=== PATIENT | female | born 1950 | race African-American/Black ===

== ENCOUNTER 2016-11-11 09:24 | Inpatient (IN) | payer OTHER, MEDICARE ==
[~2016-11-11] VITALS: Ht 163.8 cm; Wt 116.3 kg
[2016-11-12] MEDS ORDERED: MULT1TAB PO (09:53)
[2016-11-12] MEDS ORDERED: MAGN400T24 PO (09:53)
[2016-11-12] MEDS ORDERED: AMLO5TAB2 PO (09:53)
[2016-11-12] MEDS ORDERED: METF1000 PO (09:53)
[2016-11-12] MEDS ORDERED: VITACAP7 PO (09:53)
[2016-11-12] MEDS ORDERED: ATEN25TA PO (09:53)
[2016-11-12] MEDS ORDERED: OMEP20TA PO (09:53)
[2016-11-12] MEDS ORDERED: LOSA25TA PO (09:53)
[2016-11-12] MEDS ORDERED: VITATAB56 PO (09:53)
[2016-11-12] MEDS ORDERED: FLUT1SPR5 EACH NARE (09:53)
[2016-11-12] MEDS ORDERED: DICL75TA PO (09:53)
[2016-11-12] MEDS ORDERED: PRAV10TA PO (09:53)
[2016-11-24] MEDS ORDERED: BUPIVACAINE LIPOSOME PF 1.3% 20 ML VIAL ONE (09:05)
[2016-11-24 09:08] VITALS: BP 148/88; PULSE 78; RESP 16; TEMP 99.6; O2SAT 96
[2016-11-24] MEDS ORDERED: ROPIVACAINE PERI-ARTICULAR INJECTION. P-ARTICULR SCH ×5 (09:15)
[2016-11-24] MEDS ORDERED: ceFAZolin 2 GM PREMIX 50 ML IV SCH (09:15)
[2016-11-24] MEDS ORDERED: INSULIN HUMAN REGULAR 1,000 UNITS/10 ML VIAL SQ PRN (09:15)
[2016-11-24] MEDS ORDERED: POVIDONE IODINE 7.5% SCRUB 118 ML BOTTLE TOPICAL SCH (09:15)
[2016-11-24] MEDS ORDERED: SODIUM CHLORIDE 0.9% IV SCH ×2 (09:15→15:00)
[2016-11-24] MEDS ORDERED: CHLORHEXIDINE GLUCONATE 2 % 1 PACK (2 CLOTHS) TOPICAL PRN (09:15)
[2016-11-24] MEDS ORDERED: POVIDONE IODINE 5% (ANTISEPSIS KIT) 4 APPLICATIONS EACH NARE PRN (09:15)
[2016-11-24] MEDS ORDERED: SODIUM CHLORID 0.9% 500 ML IV PRN (09:15)
[2016-11-24] MEDS ORDERED: METOPROLOL TARTRATE 25 MG TAB PO PRN (09:15)
[2016-11-24] MEDS ORDERED: VANCOMYCIN 1000 MG/NS 250 ML (for <70 kg) IV SCH ×2 (09:15)
[2016-11-24] MEDS ORDERED: DEXAMETHASONE SOD PHOS 20 MG/5 ML VIAL IV ONE (09:15)
[2016-11-24] MEDS ORDERED: LACTATED RINGER'S 1000 ML IV PRN (09:15)
[2016-11-24] MEDS ORDERED: TRANEXAMIC ACID IV SCH ×2 (09:15→15:00)
[2016-11-24] MEDS ORDERED: FAMOTIDINE 20 MG/2 ML VIAL ONE (10:49)
[2016-11-24] MEDS ORDERED: MIDAZOLAM HCL 2 MG/2 ML VIAL ONE ×2 (10:49→14:27)
[2016-11-24] MEDS ORDERED: GENTAMICIN SULFATE 80 MG/2 ML VIAL ONE (11:04)
[2016-11-24] MEDS ORDERED: ACETAMINOPHEN 1000 MG/100 ML VIAL IV ONE (11:12)
[2016-11-24] MEDS ORDERED: LACTATED RINGER'S 1000 ML INJ 1,000 ML IV ONE (12:00)
[2016-11-24] MEDS ORDERED: ONDANSETRON HCL 4 MG/2 ML VIAL IV PUSH ONE (12:00)
[2016-11-24] MEDS ORDERED: NEOSTIGMINE 3 MG/3 ML SYR IV ONE (12:00)
[2016-11-24] MEDS ORDERED: PROPOFOL 200 MG/20 ML AMP IV ONE (12:00)
--- NOTE | 2016-11-24 13:56 | PD.OP ---
cc: Mookie Funk MD Operative Report Date of Surgery: Nov 24, 2016 Preoperative Diagnosis: Right knee severe osteoarthritis Postoperative Diagnosis: Same Procedure: Right total knee arthroplasty Anesthesia: Adductor canal block and general Surgeon: Mookie Funk Audit Manager(s): ADOLFO Qureshi The surgical procedure was assisted by my Advanced Registered Nurse Practitioner. My GAMEROOM TECHNICIAN presence was necessary throughout this case for the manipulation and positioning of the surgical extremity. My GAMEROOM TECHNICIAN was assisting me throughout the duration of this procedure. The skill set of an Advance Registered Nurse Practitioner was medically necessary to complete this procedure. During the surgical case, the surgical aides teacher was working at the back table and the Advance Registered Nurse Practitioner was directly assisting me. Operation and Findings: IMPLANTS: DePuy Attune: Patella: size 35. Femur, posterior stabilized size 5. Tibia, rotating platform size 5. Tibial insert, rotating platform, posterior stabilized size 12 mm thickness. ESTIMATED BLOOD LOSS: 150 cc TOURNIQUET TIME: 47 minutes at 300 mmHg pressure. JUSTIFICATION FOR PROCEDURE: The patient has end-stage osteoarthritis to the knee. There is an attached conservative measures pathway form in the chart that describes the nonoperative measures that were undertaken prior to consideration of surgical management. The patient understood the risks and benefits of surgical management. See my office notes for further details PROCEDURE: The patient was brought back to the operative theatre. Adequate anesthesia was obtained. The patient received intravenous vancomycin and Ancef. The lower extremity was prepped and draped in the usual sterile fashion.The leg was exsanguinated, the tourniquet was raised. A standard anterior incision was performed followed by medial parapatellar arthrotomy was performed. End-stage arthritis was identified. Osteotomy of the patella was performed. We drilled holes for the patella. We trialed the patella component. We placed an intramedullary guide into the distal femur. We ultimately resected 11 mm off of the distal femur in 5 degrees of valgus. The remnants of the ACL and PCL were resected. Osteotomy of the proximal tibia was performed, resecting 5 mm off of the medial side. This was done with 3 degrees of posterior slope using an extramedullary guide. The distal end of the guide was placed in the mid aspect of the ankle. The femur was sized, and four chamfer cuts were completed in 3 of external rotation. We then cut the central box in the distal femur to replace the PCL. We resected the remnants of the menisci and removed osteophytes off of the femur and tibia. We then trialed the knee. We punched the tibia for the keel, and then used standard technique to cement in components. Excess cement was removed. We trialed the knee again and the final polyethylene thickness was chosen to provide extension to 0 degrees, and flexion of 140 degrees to gravity. The ligaments were appropriately balanced. Lateral release was not necessary to obtain excellent patellofemoral tracking. The tourniquet was released and adequate hemostasis was obtained. An intra- articular injection of a ropivacaine cocktail was injected. The posterior knee was inspected for excess cement, which was removed. The final polyethylene was put into position after thorough irrigation. We then closed deep fascia with a #2 Stratafix followed by skin with 2-0 Vicryl followed by sumanth. Postop plan is to weight-bear as tolerated. DVT prophylaxis will be performed with [place], VARSHA ugalde, early mobilization, and Lovenox followed by aspirin. Mookie Funk MD Nov 24, 2016 13:56
[2016-11-24] MEDS ORDERED: NORC5TAB PO (13:57)
[2016-11-24] MEDS ORDERED: ENOX40P SQ (13:57)
[2016-11-24] MEDS ORDERED: ASPI325T PO (13:57)
[2016-11-24] MEDS ORDERED: NALOXONE HCL 0.4 MG/ML AMP IV PRN (14:00)
[2016-11-24] MEDS ORDERED: ALUMINUM/MAGNESIUM/SIMETH 30 ML CUP PO PRN (14:00)
[2016-11-24] MEDS ORDERED: SODIUM CHLORIDE 0.9% FLUSH 5 ML FLUSH IVF PRN (14:00)
[2016-11-24] MEDS ORDERED: ZOLPIDEM TARTRATE 5 MG TAB PO PRN (14:00)
[2016-11-24] MEDS ORDERED: ACETAMINOPHEN/HYDROcodone 325 MG/5 MG TAB PO PRN (14:00)
[2016-11-24] MEDS ORDERED: diphenhydrAMINE HCL 50 MG/ML VIAL IV PRN (14:00)
[2016-11-24] MEDS ORDERED: Post-op Orders (for Pharmacy) MISC XX ONE (14:00)
[2016-11-24] MEDS ORDERED: MAGNESIUM HYDROXIDE SUSP 30 ML CUP PO PRN (14:00)
[2016-11-24] MEDS ORDERED: MORPHINE SULFATE 4 MG/ML INJ IV PUSH PRN (14:00)
[2016-11-24] MEDS ORDERED: BISACODYL 10 MG SUPP RECTAL PRN (14:00)
[2016-11-24] MEDS ORDERED: DO NOT ADM ANY ANTICOAGULANT DRUGS PRN (14:15)
[2016-11-24] MEDS: SODIUM CHLOR 0.9% 1000 ML INJ 1,000 ML IV SCH (14:26)
[2016-11-24] MEDS ORDERED: fentaNYL CITRATE 250 MCG/5 ML AMP ONE (14:28)
--- NOTE | 2016-11-24 14:33 | HHI.DCPOC ---
Discharge Care Plan Diagnosis: (1) Primary localized osteoarthrosis, lower leg (2) Status post total knee replacement, right Your Health Problems Are: Difficulty with ADL Goals to Promote Your Health * To prevent worsening of your condition and complications * To maintain your health at the optimal level Directions to Meet Your Goals Take your medications as prescribed Follow your dietary instruction Follow activity as directed Keep your appointments as scheduled Take your immunizations and boosters as scheduled If your symptoms worsen call your PCP, if no PCP go to Urgent Care Center or Emergency Room Smoking is Dangerous to Your Health. Avoid second hand smoke Call the 24-hour hour crisis hotline for domestic abuse at Cesario Swartz Nov 24, 2016 14:33
--- NOTE | 2016-11-24 14:34 | HHI.FF ---
Face to Face Verification Diagnosis: (1) Primary localized osteoarthrosis, lower leg (2) Status post total knee replacement, right Physical Therapy Gait training, Transfer training, bed to chair Knee: Total knee Right LE Weight Bearing: WB as tolerated Right LE Range of Motion: Active ROM Nursing Nursing: Mirta teaching, Dressing changes Dressing Changes: Daily dressing change I have seen patient Priyanka Marc on 11/24/16. My clinical findings support the need for the requested home health care services because: Limited ability to care for self High risk of falls I certify that my clinical findings support that this patient is homebound because: Post-op weakness Unsteady gait/balance Cesario Swartz Nov 24, 2016 14:34
[2016-11-24] MEDS ORDERED: CPMMACHINE (14:35)
[2016-11-24] MEDS ORDERED: WALKER WHEELS/F1 MIS (14:35)
[2016-11-24] MEDS ORDERED: COMMODE 3-IN-11 MIS (14:35)
[2016-11-24] MEDS ORDERED: *ONDANSETRON 4 MG VIAL PERIprocedural Use ONLY ONE (14:42)
[2016-11-24] MEDS ORDERED: *morphine SULFATE 8 MG/ML PERIprocedure ONLY ONE (14:51)
--- NOTE | 2016-11-24 14:51 | RADRPT ---
EXAM DATE/TIME: 11/24/2016 14:24 [facility] COMPARISON: No previous studies available for comparison. INDICATIONS : Status post op total right knee arthroplasty. MEDICAL HISTORY : None. SURGICAL HISTORY : None. ENCOUNTER: Subsequent ACUITY: 1 day PAIN SCORE: Non-responsive. LOCATION: Right Knee FINDINGS: Postsurgical features of the right hip arthroplasty with arthroplastic components in anatomic alignme nt. Osseous structures are intact without evidence for acute bony fracture. Surgical staple lines and soft tissue postsurgical emphysema is noted. CONCLUSION: 1. Expected postoperative changes of right knee arthroplasty in anatomic alignment without significan t acute fracture. Odell Serna MD on November 24, 2016 at 14:48 Board Certified Radiologist. This report was verified electronically.
[2016-11-24] MEDS ORDERED: *RESP: ALBUTEROL 2.5 MG/3 ML NEB (PRN) PERIprocedural Use ONLY NEB ONE (15:14)
[2016-11-24 16:00] VITALS: BP 138/90; PULSE 80; RESP 18; TEMP 98.8; O2SAT 94
[2016-11-24] MEDS ORDERED: GLUCAGON 1 MG/ML VIAL OTHER PRN (16:45)
[2016-11-24] MEDS ORDERED: DEXTROSE 50% IN WATER 50 ML VIAL(D50) IV PRN (16:45)
--- NOTE | 2016-11-24 17:59 | PD.CONS ---
HPI Service [facility] Hospitalists Consult Requested By Dr. Funk Reason for Consult Medical management Primary Care Physician Katia Myles Diagnoses: (1) Status post total knee replacement, right (2) Primary localized osteoarthrosis, lower leg History of Present Illness Written by Syeda Martinez, acting as scribe for Dr. Duckworth on 11/24/16 at 17:58. Ms. Marc is a 66-year-old female patient with a known history of type 2 diabetes mellitus, hypertension, asthma, diverticulitis, dyslipidemia, arthritis , sleep apnea, GERD and right lower extremity osteoarthritis who underwent a right total knee replacement today by Dr. Funk. Hospitalist team has been consulted for medical management. Patient is seen and examined in hospital room , a relatively poor historian due to significant pain related to surgery. Family at bedside. Questions answered via patient, family and review of medical records. Patient does state that her diabetes is relatively controlled, currently on Metformin, and remembers her last hemoglobin A1c around 5. States she is compliant with her home medications. Denies any recent illness, fever, chills, cough, headache, shortness of breath, abdominal pain, nausea, vomiting, diarrhea or dysuria. Review of Systems Musculoskeletal: COMPLAINS OF: Joint pain (right knee) Except as stated in HPI: all other systems reviewed are Neg Past Family Social History Allergies: Coded Allergies: Codeine (Verified Allergy, Intermediate, nausea vomiting, 11/24/16) Tramadol (Unverified Allergy, Intermediate, nausea vomiting, 11/24/16) Past Medical History Anemia Arthritis Asthma Type 2 diabetes mellitus Hypertension Sleep apnea Dyslipidemia GERD Past Surgical History Total hysterectomy Hernia repair x 3 Abdominal mesh repair Left food titanium ball placement. Reported Medications Active Aspirin 325 Mg Tab 325 Mg PO DAILY Start Aspirin after Lovenox is completed. Lovenox Inj (Enoxaparin Sodium) 40 Mg/0.4 Ml Syr 40 Mg SQ DAILY Start Aspirin after Lovenox is completed. Green[place] (Hydrocodone-Acetaminophen) 5-325 mg Tab 1-2 Tab PO Q4H PRN Reported Vitamin D-400 (Cholecalciferol) 400 Unit Tab 400 Units PO DAILY B Complex (B-Complex Vitamins) 1 Cap 1 Cap PO DAILY Magnesium (Magnesium Oxide) 400 Mg Tablet 400 Mg PO DAILY Pravastatin 10 Mg Tab 10 Mg PO DAILY Losartan (Losartan Potassium) 25 Mg Tab 25 Mg PO DAILY Centrum Silver Adult 50+ (Multiple Vitamins W/ Minerals) 1 Tab Tab 1 Tab PO DAILY Omeprazole 20 Mg Tab 20 Mg PO DAILY Metformin (Metformin HCl) 1,000 Mg Tab 1,000 Mg PO BIDPC With meals Diclofenac Sodium DR (Diclofenac Sodium) 75 Mg Tabdr 75 Mg PO BID Atenolol 25 Mg Tab 25 Mg PO DAILY Amlodipine (Amlodipine Besylate) 5 Mg Tab 5 Mg PO DAILY Active Ordered Medications Current Medications Medications (Trade) Dose Ordered Sig/Sharlene Route Start Time Stop Time Status Last Admin (Norvasc) 5 mg DAILY PO 11/25/16 09:00 (Tenormin) 25 mg DAILY PO 11/25/16 09:00 (Cozaar) 25 mg DAILY PO 11/25/16 09:00 (Mag-Ox) 400 mg DAILY PO 11/25/16 09:00 (Glucophage) 1,000 mg BIDPC PO 11/25/16 09:00 (Pravachol) 10 mg DAILY PO 11/25/16 09:00 Pantoprazole Sodium 20 mg 20 mg DAILY PO 11/25/16 09:00 (NS 1000 ml Inj) 1,000 ml @ 100 mls/hr Q10H IV 11/24/16 13:52 11/24/16 14:26 (NS Flush) 2 ml UNSCH PRN IVF 11/24/16 14:00 IV Flush 2 ml 2 ml BID IVF 11/24/16 21:00 (Ancef Inj/NS Inj) 100 ml @ 200 mls/hr Q6H IV 11/24/16 15:00 11/25/16 03:29 11/24/16 15:20 (Decadron Inj) 10 mg ONCE ONCE IV 11/25/16 07:45 11/25/16 07:46 (Lovenox Inj) 40 mg Q24H SQ 11/25/16 13:00 12/04/16 13:01 (Greenleaf 5-325 Mg) 1 tab Q4H PRN PO 11/24/16 14:00 Acetaminophen/ Hydrocodone Bitart 2 tab 2 tab Q4H PRN PO 11/24/16 14:00 (Cyklokapron Inj/ NS Inj) 110.88 ml @ 200 mls/ hr UNSCH IV 11/24/16 15:00 11/24/16 23:00 11/24/16 14:47 (Theragran M Tab) 1 tab BID PO 11/25/16 21:00 01/24/17 20:59 (Zofran Inj) 4 mg Q6H PRN IVP 11/24/16 14:00 (Colace) 100 mg BID PO 11/25/16 21:00 (Mag-Al Plus Susp Liq) 30 ml Q6H PRN PO 11/24/16 14:00 (Ambien) 5 mg HS PRN PO 11/24/16 14:00 (Dulcolax Supp) 10 mg DAILY PRN RECTAL 11/24/16 14:00 (Milk Of Magnesia Liq) 30 ml DAILY PRN PO 11/24/16 14:00 (Narcan Inj) 0.4 mg UNSCH PRN IV 11/24/16 14:00 (Benadryl Inj) 25 mg Q6H PRN IV 11/24/16 14:00 (Morphine Inj) 2 mg Q3H PRN IV PUSH 11/24/16 14:00 Miscellaneous Information ALL NURSING DEPARTME... UNSCH PRN .XX 11/24/16 14:15 11/25/16 14:14 (D50w (Vial) Inj) 50 ml UNSCH PRN IV 11/24/16 16:45 (Glucagon Inj) 1 mg UNSCH PRN OTHER 11/24/16 16:45 Family History Maternal medical history significant for Alzheimer's disease. Paternal medical history significant for CVA. Social History Patient denies any current tobacco, alcohol or illicit drug use. Physical Exam Vital Signs Vital Signs Date Time Temp Pulse Resp B/P Pulse Ox O2 Delivery O2 Flow Rate FiO2 11/24/16 16:00 99.0 79 21 157/76 96 Nasal Cannula 3 11/24/16 15:45 76 21 150/79 93 Nasal Cannula 3 11/24/16 15:30 71 22 156/80 94 Nasal Cannula 3 11/24/16 15:15 69 14 150/75 90 Nasal Cannula 4 11/24/16 15:00 62 20 145/68 98 Nasal Cannula 4 11/24/16 14:45 68 20 155/80 91 Nasal Cannula 4 11/24/16 14:30 62 22 132/61 95 Nasal Cannula 4 11/24/16 14:17 98.7 71 20 160/80 91 Nasal Cannula 5 11/24/16 09:08 99.6 78 16 148/88 96 Physical Exam GENERAL: Well-developed patient obese female patient lying in bed with apparent right knee pain. SKIN: No rashes, ecchymoses or lesions. Warm and dry. Right lower extremity bandage c/d/i. HEENT: Atraumatic. Normocephalic. No temporal or scalp tenderness. Pupils equal round and reactive. Extraocular motions intact. No scleral icterus. No injection or drainage. Nose without bleeding. Airway patent. NECK: Trachea midline. No JVD. Supple. CARDIOVASCULAR: Regular rate and rhythm. No murmur appreciated. RESPIRATORY: Clear to auscultation. Breath sounds equal bilaterally. No wheezes , rales, or rhonchi. GASTROINTESTINAL: Abdomen soft, non-tender, nondistended. No hepato-splenomegaly , or palpable masses. No guarding. MUSCULOSKELETAL: Extremities without clubbing, cyanosis, or edema. No joint tenderness, effusion, or edema noted. NEUROLOGICAL: Awake and alert. Cranial nerves II through XII intact. Motor and sensory grossly within normal limits. Five out of 5 muscle strength in all muscle groups. Normal speech. Laboratory Laboratory Tests Test 11/24/16 08:53 Blood Type O POSITIVE Antibody Screen NEGATIVE Crossmatch Leukocyte-Reduced Red Blood Cells Blood Bank Comment Imaging Last Impressions Knee X-Ray 11/24/16 1352 Signed Impressions: Service Date/Time: Tuesday, November 24, 2016 14:24 - CONCLUSION: 1. Expected postoperative changes of right knee arthroplasty in anatomic alignment without significant acute fracture. Odell Serna MD Assessment and Plan Assessment and Plan Ms. Marc is a 66-year-old female patient with a known history of type 2 diabetes mellitus, hypertension, asthma, dyslipidemia, arthritis, sleep apnea, GERD and left lower extremity osteoarthritis who underwent a right total knee replacement today by Dr. Funk. Hospitalist team has been consulted for medical management. Status post total right knee arthroplasty Osteoarthritis of right knee - Post op day 0, 11/24/16 - Knee x-ray reviewed, normal postoperative findings. - Control pain, [place] 5/325 mg PO q4hr PRN per pain scale. Morphine 2 mg IV q3hr PRN pain > 5. - Monitor for constipation, Colace 100 mg PO BID scheduled, Milk of magnesium and bisacodyl suppository available PRN. - Control nausea, Zofran PRN. - Encourage use of incentive spirometry. - Vancomycin 1 g IV x 1 given in OR. Ancef 1 gram x 3 bags. - Decadron 10 mg IV x 1. - Encourage PO intake as tolerated. Continue IVF until tolerating PO intake. - Dressing changes and immobilizer managed by orthopedic surgery. Hypertension, chronic: suspect partially pain related. Continue home amlodipine 5 mg PO dialy, atenolol 25 m PO daily, Losartan 25 mg PO daily. Type 2 diabetes mellitus, chronic: Tight glucose control. ACCU checks ACHS. Sliding scale insulin, cover as needed. Continue Metformin 1000 mg PO BID. Dyslipidemia, chronic: Continue home pravastatin 10 mg PO daily. GI Prophylaxis: Protonix 20 mg Po daily. DVT prophylaxis: SCDs/Lovenox 40 mg sq Q24hr. Thank you for this consult. Will follow with you. This note was transcribed by ADOLFO Bobo. I, Dr. Jignesh Duckworth personally performed the history, physical exam, and medical decision making; and confirmed the accuracy of the information in the transcribed note. Authenticated by Dr. Jignesh Duckworth on 11/24/16 at 18:44. Syeda Martinez Nov 24, 2016 17:59 Mamie Duckworth DO Nov 24, 2016 18:45
[2016-11-24 20:00] VITALS: BP 143/84; PULSE 88; RESP 16; TEMP 98.9; O2SAT 97
[2016-11-24] MEDS: ONDANSETRON HCL 4 MG/2 ML VIAL IVP PRN (20:03)
[2016-11-24] MEDS: ACETAMINOPHEN/HYDROcodone 325 MG/5 MG TAB PO PRN (20:03)
[2016-11-24] MEDS: SODIUM CHLORIDE 0.9% FLUSH 5 ML FLUSH IVF SCH (20:04)
[2016-11-24] MEDS: INSULIN ASPART SUPPLEMENTAL SCALE SQ SCH (21:00)
[2016-11-24 21:06] VITALS: O2SAT 97
[2016-11-24 23:10] VITALS: BP 138/72; PULSE 83; RESP 17; TEMP 98.9; O2SAT 96
[2016-11-25] MEDS: ACETAMINOPHEN/HYDROcodone 325 MG/5 MG TAB PO PRN ×4 (00:17→13:46)
[2016-11-25] MEDS: SODIUM CHLOR 0.9% 1000 ML INJ 1,000 ML IV SCH ×2 (00:19→09:52)
[2016-11-25 04:00] VITALS: BP 111/53; PULSE 75; RESP 16; TEMP 97.4; O2SAT 95
[2016-11-25] MEDS: INSULIN ASPART SUPPLEMENTAL SCALE SQ SCH ×2 (06:15→11:00)
[2016-11-25 06:23] LABS: HEMATOCRIT 30.1 % (35.0-46.0); MEAN CELL VOLUME 83.5 FL (80.0-100.0); MEAN CORPUSCULAR HEMOGLOBIN 26.7 PG (27.0-34.0); MEAN CORPUSCULAR HGB CONC 31.9 % (32.0-36.0); PLATELET COUNT 226 TH/MM3 (150-450); RED CELL DISTRIBUTION WIDTH 15.1 % (11.6-17.2); REVIEW FLAG FINAL; WHITE BLOOD COUNT 12.5 TH/MM3 (4.0-11.0)
[2016-11-25] MEDS ORDERED: DEXAMETHASONE SOD PHOS 20 MG/5 ML VIAL IV ONE (07:45)
[2016-11-25 08:00] VITALS: BP 132/63; PULSE 79; RESP 18; TEMP 99.1; O2SAT 93
[2016-11-25] MEDS ORDERED: PANTOPRAZOLE SOD 20 MG DELAYED RELEASE TAB PO SCH (09:00)
[2016-11-25] MEDS ORDERED: ATENOLOL 25 MG TAB PO SCH (09:00)
[2016-11-25] MEDS ORDERED: amLODIPine BESYLATE 5 MG TAB PO SCH (09:00)
[2016-11-25] MEDS ORDERED: metFORMIN HCL 500 MG TAB PO SCH (09:00)
[2016-11-25] MEDS ORDERED: MAGNESIUM OXIDE 400 MG TAB PO SCH (09:00)
[2016-11-25] MEDS ORDERED: LOSARTAN 25 MG TAB PO SCH (09:00)
[2016-11-25] MEDS ORDERED: PRAVASTATIN SOD 10 MG TAB PO SCH (09:00)
[2016-11-25] MEDS: SODIUM CHLORIDE 0.9% FLUSH 5 ML FLUSH IVF SCH (09:41)
[2016-11-25] MEDS: ONDANSETRON HCL 4 MG/2 ML VIAL IVP PRN (09:59)
[2016-11-25] MEDS ORDERED: FERR324T4 PO (11:17)
[2016-11-25 11:18] VITALS: BP 135/73; PULSE 75; RESP 18; TEMP 99.2; O2SAT 94
--- NOTE | 2016-11-25 12:29 | PD.ORT.PN ---
Subjective Post Op Day #: 1 Subjective Remarks The patient is resting in bed with family at bedside. Patient is having minimal pain. Patient requesting to go home today with home health. Objective Vitals Vital Signs Date Time Temp Pulse Resp B/P Pulse Ox O2 Delivery O2 Flow Rate FiO2 11/25/16 11:18 99.2 75 18 135/73 94 11/25/16 08:00 99.1 79 18 132/63 93 11/25/16 04:00 97.4 75 16 111/53 95 11/24/16 23:10 98.9 83 17 138/72 96 11/24/16 21:06 97 Nasal Cannula 2.00 11/24/16 20:00 98.9 88 16 143/84 97 11/24/16 16:00 98.8 80 18 138/90 94 11/24/16 16:00 99.0 79 21 157/76 96 Nasal Cannula 3 11/24/16 15:45 76 21 150/79 93 Nasal Cannula 3 11/24/16 15:30 71 22 156/80 94 Nasal Cannula 3 11/24/16 15:15 69 14 150/75 90 Nasal Cannula 4 11/24/16 15:00 62 20 145/68 98 Nasal Cannula 4 11/24/16 14:45 68 20 155/80 91 Nasal Cannula 4 11/24/16 14:30 62 22 132/61 95 Nasal Cannula 4 11/24/16 14:17 98.7 71 20 160/80 91 Nasal Cannula 5 I/O 11/24/16 11/24/16 11/24/16 11/25/16 11/25/16 11/25/16 07:00 15:00 23:00 07:00 15:00 23:00 Intake Total 1700 ml 1870 ml 720 ml Output Total 200 ml Balance 1500 ml 1870 ml 720 ml Intake Oral 610 ml 720 ml IV Total 1260 ml Other 1700 ml Output Estimated Blood Loss 200 ml # Voids 3 2 # Bowel Movements 0 Result Diagram: 11/25/16 0541 Imaging Last 24 hours Impressions Knee X-Ray 11/24/16 1352 Signed Impressions: Service Date/Time: Thursday, November 24, 2016 14:24 - CONCLUSION: 1. Expected postoperative changes of right knee arthroplasty in anatomic alignment without significant acute fracture. Odell Serna MD Procedures Right TKA Objective Remarks The patient's dressing was changed with no drainage. Incision is well approximated with surgical clips intact. No redness or s/s of infection. EHL/ TA/G intact. 2+ pedal pulse. Calf is soft and nontender. + SILT. Assessment & Plan Ortho Post Op Day #: 1 Problem List: Assessment and Plan POD #1: Right TKA 1. WBAT RLE 2. Lovenox for DVT prophylaxis 3. Ice to the right knee PRN 4. Stable for discharge home with home health per ortho today. Cesario Swartz Nov 25, 2016 12:29
[2016-11-25] MEDS ORDERED: ZOFR4TAB PO (12:30)
--- NOTE | 2016-11-25 12:35 | HHI.PR ---
Subjective Remarks Written by Syeda aMrtinez, acting as scribe for Dr. Duckworth on 11/25/16 at 1115. Follow up right knee arthroplasty. Patient seen and examined lying comfortably in bed. Pain is more controlled today. Tolerating PO intake. No BM as of yet. Denies any recent fever, chills, cough, shortness of breath, abdominal pain, nausea, vomiting, diarrhea. Objective Vitals Vital Signs Date Time Temp Pulse Resp B/P Pulse Ox O2 Delivery O2 Flow Rate FiO2 11/25/16 11:18 99.2 75 18 135/73 94 11/25/16 08:00 99.1 79 18 132/63 93 11/25/16 04:00 97.4 75 16 111/53 95 11/24/16 23:10 98.9 83 17 138/72 96 11/24/16 21:06 97 Nasal Cannula 2.00 11/24/16 20:00 98.9 88 16 143/84 97 11/24/16 16:00 98.8 80 18 138/90 94 11/24/16 16:00 99.0 79 21 157/76 96 Nasal Cannula 3 11/24/16 15:45 76 21 150/79 93 Nasal Cannula 3 11/24/16 15:30 71 22 156/80 94 Nasal Cannula 3 11/24/16 15:15 69 14 150/75 90 Nasal Cannula 4 11/24/16 15:00 62 20 145/68 98 Nasal Cannula 4 11/24/16 14:45 68 20 155/80 91 Nasal Cannula 4 11/24/16 14:30 62 22 132/61 95 Nasal Cannula 4 11/24/16 14:17 98.7 71 20 160/80 91 Nasal Cannula 5 I/O 11/24/16 11/24/16 11/24/16 11/25/16 11/25/16 11/25/16 06:59 14:59 22:59 06:59 14:59 22:59 Intake Total 1700 ml 1870 ml 720 ml Output Total 200 ml Balance 1500 ml 1870 ml 720 ml Intake Oral 610 ml 720 ml IV Total 1260 ml Other 1700 ml Output Estimated Blood Loss 200 ml # Voids 3 2 # Bowel Movements 0 Result Diagram: 11/25/16 0541 Imaging Last Impressions Knee X-Ray 11/24/16 1352 Signed Impressions: Service Date/Time: Thursday, November 24, 2016 14:24 - CONCLUSION: 1. Expected postoperative changes of right knee arthroplasty in anatomic alignment without significant acute fracture. Odell Serna MD Objective Remarks GENERAL: Well-developed patient obese female patient lying in bed comfortably, pain controlled. SKIN: No rashes, ecchymoses or lesions. Warm and dry. Right lower extremity bandage c/d/i. HEENT: Atraumatic. Normocephalic. No temporal or scalp tenderness. Pupils equal round and reactive. Extraocular motions intact. No scleral icterus. No injection or drainage. Nose without bleeding. Airway patent. NECK: Trachea midline. No JVD. Supple. CARDIOVASCULAR: Regular rate and rhythm. No murmur appreciated. RESPIRATORY: Clear to auscultation. Breath sounds equal bilaterally. No wheezes , rales, or rhonchi. GASTROINTESTINAL: Abdomen soft, non-tender, nondistended. No guarding. MUSCULOSKELETAL: Extremities without clubbing, cyanosis, or edema. No joint tenderness, effusion, or edema noted. NEUROLOGICAL: Awake and alert. Cranial nerves II through XII intact. Motor and sensory grossly within normal limits. Five out of 5 muscle strength in all muscle groups. Normal speech. A/P Problem List: (1) Status post total knee replacement, right ICD Code: Z96.651 Status: Acute (2) Primary localized osteoarthrosis, lower leg ICD Code: M17.10 Status: Acute Assessment and Plan Ms. Marc is a 66-year-old female patient with a known history of type 2 diabetes mellitus, hypertension, asthma, dyslipidemia, arthritis, sleep apnea, GERD and left lower extremity osteoarthritis who underwent a right total knee replacement today by Dr. Funk. Hospitalist team has been consulted for medical management. Status post total right knee arthroplasty Osteoarthritis of right knee - Post op 1 day , performed on 11/24/16 - Knee x-ray reviewed, normal postoperative findings. - Control pain, [place] 5/325 mg PO q4hr PRN per pain scale. Morphine 2 mg IV q3hr PRN pain > 5. - No BM as of yet, Colace 100 mg PO BID scheduled, Milk of magnesium and bisacodyl suppository available PRN. - Nausea controlled, Zofran PRN. - Encourage use of incentive spirometry. - Vancomycin 1 g IV x 1 given in OR. Ancef 1 gram x 3 bags. - Decadron 10 mg IV x 1. - Encourage PO intake as tolerated. Continue IVF until tolerating PO intake. - Dressing changes and discharge plan per orthopedic surgery. Hypertension, chronic: suspect partially pain related. Continue home amlodipine 5 mg PO daily, atenolol 25 m PO daily, Losartan 25 mg PO daily. Type 2 diabetes mellitus, chronic: Tight glucose control. ACCU checks ACHS. Sliding scale insulin, cover as needed. Continue Metformin 1000 mg PO BID. Dyslipidemia, chronic: Continue home pravastatin 10 mg PO daily. GI Prophylaxis: Protonix 20 mg Po daily. DVT prophylaxis: SCDs/Lovenox 40 mg sq Q24hr. This note was transcribed by ADOLFO Bobo. I, Dr. Jignesh Duckworth personally performed the history, physical exam, and medical decision making; and confirmed the accuracy of the information in the transcribed note. Authenticated by Dr. Jignesh Duckworth on 11/26/16 at 00:07. Syeda Martinez Nov 25, 2016 12:35 Mamie Duckworth DO Nov 26, 2016 00:07
[2016-11-25] MEDS ORDERED: ENOXAPARIN SODIUM 40 MG/0.4 ML SYRINGE SQ SCH (13:00)
[2016-11-25 13:28] VITALS: O2SAT 98
[2016-11-25 16:04] LABS: HEMOGLOBIN A1b 2.3 %; HEMOGLOBIN LA1C 2.2 %; HEMOGLOBIN P3 4.4 %
--- NOTE | 2016-11-25 16:40 | OTSOAPIP ---
TIME SESSION COMPLETED: AM & PM TREATMENT TIME: 0 MINS. CHART REVIEWED. ATTEMPTED IN AM AND PT RECEIVING NURSING CARE. RETURNED AND PT IN ORTHO CLASS. Therapist: RIC NEGRON OT/L Signature on file
[2016-11-25] MEDS ORDERED: MULTIVITAMINS/MINERALS THERAPEUTIC TAB PO SCH (21:00)
[2016-11-25] MEDS ORDERED: DOCUSATE SODIUM 100 MG CAP PO SCH (21:00)
--- NOTE | 2016-11-29 21:00 | HHI.DS ---
Discharge Summary Admission Date Nov 24, 2016 at 08:00 Discharge Date: Nov 25, 2016 Admitting Diagnosis Primary localized OA, lower leg Status post total knee replacement, right Diagnosis: (1) Primary localized osteoarthrosis, lower leg Diagnosis: Principal (2) Status post total knee replacement, right Diagnosis: Principal Procedures Right TKA Brief History This is a 66 year old female patient with severe OA of the right knee CBC/BMP: 11/25/16 0541 PE at Discharge The patient's dressing was changed with no drainage. Incision is well approximated with surgical clips intact. No redness or s/s of infection. EHL/ TA/G intact. 2+ pedal pulse. Calf is soft and nontender. + SILT. Hospital Course The patient was admitted to the hospital for severe OA of the right knee to have a right TKA. The patient's surgery went well with no complications. The patient is WBAT on the right LE. The patient is on Lovenox and ASA for DVT prophylaxis and is on a diabetic diet. The patient was discharged home with home health and will f/u with Dr. Funk in 1-2 weeks. Pt Condition on Discharge: Stable Discharge Disposition: Disch w/ Home Health Serv Discharge Instructions Diet Instructions: Diabetic Diet Activities You Can Perform: Weight Bearing as Wayne Activities to Avoid: Strenuous Activity Follow up Referrals: Orthopedics with Mookie Funk MD SNF/[facility]/ with [facility] New Medications: Aspirin (Aspirin) 325 Mg Tab 325 MG PO DAILY Start Aspirin after Lovenox is completed. Prevent Blood Clot # 30 Ref 0 TAB Commode 3-in-1 (Commode 3-in-1) 1 Mis Mis 1 EA .ROUTE DIRECTED #1 Ref 0 EA CPM-Continuous Passive Motion Machine (CPM-Continuous Passive Motion Machine) 1 Ea Device 1 EA .ROUTE DIRECTED #1 Ref 0 EA Enoxaparin Inj (Lovenox Inj) 40 Mg/0.4 Ml Syr 40 MG SQ DAILY Start Aspirin after Lovenox is completed. Blood Clot Prevention # 10 Ref [address] (Ferrous Sulf[address] DR) 324 Mg Tabdr 324 MG PO DAILY If possible, take it with orange juice. Nutritional Supplement # 30 Ref 0 TAB Hydrocodone-Acetaminophen ([place]) 5-325 mg Tab 1-2 TAB PO Q4H PRN PAIN #60 Ref 0 TAB Ondansetron (Zofran) 4 Mg Tab 4 MG PO Q6HR PRN NAUSEA OR VOMITING #40 Ref 0 TAB Walker with Front Wheels (Walker with Front Wheels) 1 Mis Mis 1 EA .ROUTE DIRECTED #1 Ref 0 EA Continued Medications: Amlodipine (Amlodipine) 5 Mg Tab 5 MG PO DAILY Blood Pressure Management #30 Ref 0 TAB Atenolol (Atenolol) 25 Mg Tab 25 MG PO DAILY Blood Pressure Management #30 TAB B-Complex Vitamins (B Complex) 1 Cap 1 CAP PO DAILY Nutritional Supplement #30 Ref 0 CAP Cholecalciferol (Vitamin D-400) 400 Unit Tab 400 UNITS PO DAILY Nutritional Supplement #1 Ref 0 BOTTLE Losartan (Losartan) 25 Mg Tab 25 MG PO DAILY Blood Pressure Management #30 Ref 0 TAB Magnesium Oxide (Magnesium) 400 Mg Tablet 400 MG PO DAILY Metformin (Metformin) 1,000 Mg Tab 1000 MG PO BIDPC With meals Blood Sugar Management #60 Ref 0 TAB Multiple Vitamins W/ Minerals (Centrum Silver Adult 50+) 1 Tab Tab 1 TAB PO DAILY Omeprazole (Omeprazole) 20 Mg Tab 20 MG PO DAILY #30 Ref 0 TAB Pravastatin (Pravastatin) 10 Mg Tab 10 MG PO DAILY Cholesterol Management #30 Ref 0 TAB Discontinued Medications: Diclofenac Sodium DR (Diclofenac Sodium DR) 75 Mg Tabdr 75 MG PO BID #60 Ref 0 TAB Cesario Swartz Nov 29, 2016 21:00
== END 2016-11-25 16:16 | disposition home health service (06) | DRG 470 ==
LOC: HSDI 11-24 08:00 → N06B 11-24 16:24
PROVIDERS: ADMIT Orthopaedic Surgery; ATTEND Orthopaedic Surgery
PROC: 3E0T3BZ Introduction of Anesthetic Agent into Peripheral Nerves and Plexi, Percutaneous Approach (ICD-10-PCS; 2016-11-24)
PROC: 0SRC0J9 Replacement of Right Knee Joint with Synthetic Substitute, Cemented, Open Approach (ICD-10-PCS; principal; 2016-11-24 11:20)
DX: M17.11 Unilateral primary osteoarthritis, right knee (principal); Z68.41 Body mass index [BMI] 40.0-44.9, adult; I10 Essential (primary) hypertension; E66.9 Obesity, unspecified; E78.5 Hyperlipidemia, unspecified; E11.9 Type 2 diabetes mellitus without complications; Z79.84 Long term (current) use of oral hypoglycemic drugs; K21.9 Gastro-esophageal reflux disease without esophagitis; G47.30 Sleep apnea, unspecified; Z87.891 Personal history of nicotine dependence
CPT/HCPCS: 73560; 76937; 82948; 83036; 85027; 86850; 86900; 86901; 86920; 86922; 94150; 94664; C1776; C9290; J0131; J0171; J0690; J0735; J1100; J1580; J1650; J1885; J2250; J2270; J2405; J2710; J2795; J3010; J3370; J7030; J7050; J7120; J7613; L1830

== ENCOUNTER → 2016-11-12 | Outpatient (CLI) | payer OTHER ==
[~2016-11-12] MED LIST: AMLO5TAB2 PO; AMLO5TAB96 PO; ASPI325T PO; ATEN1TAB73 PO; ATEN25TA PO; CIPR500T4 PO; COMMODE 3-IN-11 MIS; CPMMACHINE; CYCL1PAK PO; DICL75 PO; DICL75TA PO; ENOX40P SQ; FERR324T4 PO; FLAG500T PO; FLUT1SPR5 EACH NARE; GLUCTAB PO; HYDR-3533 PO; LOSA25TA PO; MAGN400T24 PO; METF1000 PO; MULT1TAB PO; NORC5TAB PO; OMEP20TA PO; OMEP20TA39 PO; PRAV10TA PO; VITACAP7 PO; VITATAB56 PO; WALKER WHEELS/F1 MIS; ZOFR4TAB PO; ZOFR4TAB3 SL
== END ==
LOC: CPRE 09:00
PROVIDERS: ATTEND Orthopaedic Surgery
DX: Z01.812 Encounter for preprocedural laboratory examination (principal); M25.50 Pain in unspecified joint; M79.609 Pain in unspecified limb; Z96.60 Presence of unspecified orthopedic joint implant

== ENCOUNTER 2017-03-02 05:25 | Inpatient (IN) | payer OTHER, MEDICARE ==
[~2017-03-02] VITALS: Ht 163.8 cm; Wt 101.0 kg
[~2017-03-02 05:25] MED LIST changes: -AMLO5TAB96 PO; -ASPI325T PO; -ATEN1TAB73 PO; -CIPR500T4 PO; -COMMODE 3-IN-11 MIS; -CPMMACHINE; -CYCL1PAK PO; -DICL75 PO; -DICL75TA PO; -ENOX40P SQ; -FERR324T4 PO; -FLAG500T PO; -FLUT1SPR5 EACH NARE; -GLUCTAB PO; -HYDR-3533 PO; -MAGN400T24 PO; -OMEP20TA39 PO; -WALKER WHEELS/F1 MIS; -ZOFR4TAB3 SL
[2017-03-02] MEDS ORDERED: POVIDONE IODINE 5% (ANTISEPSIS KIT) 4 APPLICATIONS EACH NARE PRN (06:15)
[2017-03-02] MEDS ORDERED: METOPROLOL TARTRATE 25 MG TAB PO PRN (06:15)
[2017-03-02] MEDS ORDERED: LACTATED RINGER'S 1000 ML IV PRN (06:15)
[2017-03-02] MEDS ORDERED: CEFUROXIME IV SCH ×2 (06:15)
[2017-03-02] MEDS ORDERED: DEXAMETHASONE SOD PHOS 20 MG/5 ML VIAL IV SCH (06:15)
[2017-03-02] MEDS ORDERED: ceFAZolin 2 GM PREMIX 50 ML IV SCH (06:15)
[2017-03-02] MEDS ORDERED: SODIUM CHLORIDE IV SCH ×2 (06:15)
[2017-03-02] MEDS ORDERED: SODIUM CHLORID 0.9% 500 ML IV PRN (06:15)
[2017-03-02] MEDS ORDERED: POVIDONE IODINE 7.5% SCRUB 118 ML BOTTLE TOPICAL SCH (06:15)
[2017-03-02] MEDS ORDERED: INSULIN HUMAN REGULAR 1,000 UNITS/10 ML VIAL SQ PRN (06:15)
[2017-03-02] MEDS ORDERED: VANCOMYCIN 1000 MG/NS 250 ML (for <70 kg) IV SCH ×2 (06:15)
[2017-03-02] MEDS ORDERED: CHLORHEXIDINE GLUCONATE 2 % 1 PACK (2 CLOTHS) TOPICAL PRN (06:15)
--- NOTE | 2017-03-02 07:07 | HHI.DCPOC ---
Discharge Care Plan Diagnosis: (1) Status post total knee replacement, left (2) Primary localized osteoarthrosis, lower leg Your Health Problems Are: Difficulty with ADL Goals to Promote Your Health * To prevent worsening of your condition and complications * To maintain your health at the optimal level Directions to Meet Your Goals Take your medications as prescribed Follow your dietary instruction Follow activity as directed Keep your appointments as scheduled Take your immunizations and boosters as scheduled If your symptoms worsen call your PCP, if no PCP go to Urgent Care Center or Emergency Room Smoking is Dangerous to Your Health. Avoid second hand smoke Call the 24-hour hour crisis hotline for domestic abuse at Cesario Swartz Mar 02, 2017 07:07
--- NOTE | 2017-03-02 07:08 | HHI.FF ---
Face to Face Verification Diagnosis: (1) Primary localized osteoarthrosis, lower leg (2) Status post total knee replacement, left Physical Therapy Gait training, Transfer training, bed to chair Knee: Total knee Left LE Weight Bearing: WB as tolerated Left LE Range of Motion: Active ROM Nursing Nursing: Mirta teaching, Dressing changes Dressing Changes: Daily dressing change I have seen patient Priyanka Marc on 03/02/17. My clinical findings support the need for the requested home health care services because: Limited ability to care for self High risk of falls I certify that my clinical findings support that this patient is homebound because: Post-op weakness Unsteady gait/balance Cesario Swartz Mar 02, 2017 07:08
[2017-03-02] MEDS ORDERED: CPMMACHINE (07:10)
[2017-03-02] MEDS ORDERED: WALKER WHEELS/F1 MIS (07:10)
[2017-03-02] MEDS ORDERED: COMMODE 3-IN-11 MIS (07:10)
[2017-03-02] MEDS ORDERED: GENTAMICIN SULFATE 80 MG/2 ML VIAL ONE (07:10)
[2017-03-02] MEDS ORDERED: ACETAMINOPHEN 1000 MG/100 ML 100 ML IV ONE (07:49)
[2017-03-02] MEDS ORDERED: HYDROmorphone HCL PF 2 MG/ML VIAL ONE (07:49)
[2017-03-02] MEDS ORDERED: TRANEXAMIC ACID IV SCH ×2 (08:30→11:30)
[2017-03-02] MEDS ORDERED: ROPIVACAINE PERI-ARTICULAR INJECTION. P-ARTICULR SCH ×5 (08:30)
[2017-03-02] MEDS ORDERED: SODIUM CHLORIDE 0.9% IV SCH ×2 (08:30→11:30)
--- NOTE | 2017-03-02 10:26 | PD.OP ---
cc: Mookie Funk MD Operative Report Date of Surgery: Mar 02, 2017 Preoperative Diagnosis: Left knee severe osteoarthritis Postoperative Diagnosis: Same Procedure: Left total knee arthroplasty Anesthesia: Gen. Surgeon: Mookie Funk [employer] Office Route Aide(s): ADOLFO Qureshi The surgical procedure was assisted by my Advanced Registered Nurse Practitioner. My TRAMPOLINE TEAM COACH presence was necessary throughout this case for the manipulation and positioning of the surgical extremity. My TRAMPOLINE TEAM COACH was assisting me throughout the duration of this procedure. The skill set of an Advance Registered Nurse Practitioner was medically necessary to complete this procedure. During the surgical case, the hand frame surgical elastic knitter was working at the back table and the Advance Registered Nurse Practitioner was directly assisting me. Operation and Findings: IMPLANTS: DePuy Attune: Patella: size 35. Femur, posterior stabilized size 6. Tibia, rotating platform size 6. Tibial insert, rotating platform, posterior stabilized size 7 mm thickness. ESTIMATED BLOOD LOSS: 100 cc TOURNIQUET TIME: 42 minutes at 250 mmHg pressure. JUSTIFICATION FOR PROCEDURE: The patient has end-stage osteoarthritis to the knee. There is an attached conservative measures pathway form in the chart that describes the nonoperative measures that were undertaken prior to consideration of surgical management. The patient understood the risks and benefits of surgical management. See my office notes for further details PROCEDURE: The patient was brought back to the operative theatre. Adequate anesthesia was obtained. The patient received intravenous vancomycin and Ancef. The lower extremity was prepped and draped in the usual sterile fashion.The leg was exsanguinated, the tourniquet was raised. A standard anterior incision was performed followed by medial parapatellar arthrotomy was performed. End-stage arthritis was identified. Osteotomy of the patella was performed. We drilled holes for the patella. We trialed the patella component. We placed an intramedullary guide into the distal femur. We ultimately resected 14 mm off of the distal femur in 5 degrees of valgus. The remnants of the ACL and PCL were resected. Osteotomy of the proximal tibia was performed, resecting 4 mm off of the medial side. This was done with 3 degrees of posterior slope using an extramedullary guide. The distal end of the guide was placed in the mid aspect of the ankle. The femur was sized, and four chamfer cuts were completed in 3 of external rotation. We then cut the central box in the distal femur to replace the PCL. We resected the remnants of the menisci and removed osteophytes off of the femur and tibia. We then trialed the knee. We punched the tibia for the keel, and then used standard technique to cement in components. Excess cement was removed. We trialed the knee again and the final polyethylene thickness was chosen to provide extension to 0 degrees, and flexion of 140 degrees to gravity. The ligaments were appropriately balanced. Lateral release was necessary to obtain excellent patellofemoral tracking. The tourniquet was released and adequate hemostasis was obtained. An intra- articular injection of a ropivacaine cocktail was injected. The posterior knee was inspected for excess cement, which was removed. The final polyethylene was put into position after thorough irrigation. We then closed deep fascia with a #2 Stratafix followed by skin with 2-0 Vicryl followed by sumanth. Postop plan is to weight-bear as tolerated. DVT prophylaxis will be performed with SCDdeja, VARSHA ugalde, early mobilization, and Lovenox followed by aspirin. Mookie Funk MD Mar 02, 2017 10:26
[2017-03-02] MEDS ORDERED: MAGNESIUM HYDROXIDE SUSP 30 ML CUP PO PRN (10:30)
[2017-03-02] MEDS ORDERED: Post-op Orders (for Pharmacy) MISC XX ONE (10:30)
[2017-03-02] MEDS ORDERED: ALUMINUM/MAGNESIUM/SIMETH 30 ML CUP PO PRN (10:30)
[2017-03-02] MEDS ORDERED: BISACODYL 10 MG SUPP RECTAL PRN (10:30)
[2017-03-02] MEDS ORDERED: ENOX40IN SQ (10:30)
[2017-03-02] MEDS ORDERED: ONDANSETRON HCL 4 MG/2 ML VIAL IVP PRN (10:30)
[2017-03-02] MEDS ORDERED: diphenhydrAMINE HCL 50 MG/ML VIAL IV PRN (10:30)
[2017-03-02] MEDS ORDERED: MORPHINE SULFATE 4 MG/ML INJ IV PUSH PRN (10:30)
[2017-03-02] MEDS ORDERED: ASPI-146 PO (10:30)
[2017-03-02] MEDS ORDERED: HYDR-3583 PO (10:30)
[2017-03-02] MEDS ORDERED: ACETAMINOPHEN/HYDROcodone 325 MG/5 MG TAB PO PRN ×2 (10:30)
[2017-03-02] MEDS ORDERED: SODIUM CHLORIDE 0.9% FLUSH 5 ML FLUSH IVF PRN (10:30)
[2017-03-02] MEDS ORDERED: ACETAMINOPHEN/HYDROcodone 325 MG/10 MG TAB PO PRN (10:30)
[2017-03-02] MEDS ORDERED: ZOLPIDEM TARTRATE 5 MG TAB PO PRN (10:30)
[2017-03-02] MEDS ORDERED: NALOXONE HCL 0.4 MG/ML AMP IV PRN (10:30)
[2017-03-02] MEDS ORDERED: DO NOT ADM ANY ANTICOAGULANT DRUGS PRN (10:50)
[2017-03-02] MEDS ORDERED: *morphine SULFATE 8 MG/ML PERIprocedure ONLY ONE ×3 (11:06→13:33)
[2017-03-02] MEDS ORDERED: *MEPERIDINE 25 MG INJ VIAL PERIprocedural Use ONLY ONE (11:10)
[2017-03-02] MEDS ORDERED: BUPIVACAINE LIPOSOME PF 1.3% 20 ML VIAL ONE (11:14)
[2017-03-02] MEDS: SODIUM CHLOR 0.9% 1000 ML INJ 1,000 ML IV SCH (11:27)
--- NOTE | 2017-03-02 11:35 | RADRPT ---
EXAM DATE/TIME: 03/02/2017 11:01 [place] COMPARISON: No previous studies available for comparison. INDICATIONS : Post op left total knee. MEDICAL HISTORY : None. SURGICAL HISTORY : None. ENCOUNTER: Initial ACUITY: 1 day PAIN SCORE: 8/10 LOCATION: Left Knee FINDINGS: AP and lateral views of the knee following arthroplasty reveals a prosthesis in anatomic alignment. F racture is not appreciated. Surgical drain is evident CONCLUSION: Status post total knee arthroplasty. Ld Marvin MD FACR Board Certified Radiologist. This report was verified electronically.
[2017-03-02] MEDS ORDERED: NEOSTIGMINE 3 MG/3 ML SYR IV ONE (12:00)
[2017-03-02] MEDS ORDERED: PROPOFOL 200 MG/20 ML AMP IV ONE (12:00)
[2017-03-02] MEDS ORDERED: ONDANSETRON HCL 4 MG/2 ML VIAL IV PUSH ONE (12:00)
[2017-03-02] MEDS ORDERED: LIDOCAINE HCL 1% PF 5 ML AMPULE OTHER ONE (12:00)
[2017-03-02] MEDS ORDERED: GLYCOPYRROLATE 1 MG/5 ML SYRINGE IV PUSH ONE (12:00)
[2017-03-02] MEDS ORDERED: ROCURONIUM INJ 50 MG/5 ML SYRINGE IV PUSH ONE (12:00)
[2017-03-02] MEDS ORDERED: SODIUM CHLORIDE 0.9% 20 ML VIAL ONE (12:00)
[2017-03-02 16:00] VITALS: BP 112/79; PULSE 76; RESP 18; TEMP 96; O2SAT 94
[2017-03-02] MEDS: metFORMIN HCL 500 MG TAB PO SCH (18:00)
[2017-03-02] MEDS: SODIUM CHLORIDE 0.9% FLUSH 5 ML FLUSH IVF SCH (22:37)
[2017-03-02] MEDS: ACETAMINOPHEN/HYDROcodone 325 MG/10 MG TAB PO PRN (22:38)
[2017-03-02 23:10] VITALS: BP 120/69; PULSE 74; RESP 17; TEMP 96.7; O2SAT 94
[2017-03-02 23:45] VITALS: BP 126/69; PULSE 78; RESP 18; TEMP 98.6; O2SAT 98
[2017-03-03 03:20] VITALS: BP 116/56; PULSE 68; RESP 18; TEMP 97; O2SAT 97
[2017-03-03] MEDS: ACETAMINOPHEN/HYDROcodone 325 MG/10 MG TAB PO PRN ×3 (06:23→11:51)
[2017-03-03] MEDS: SODIUM CHLOR 0.9% 1000 ML INJ 1,000 ML IV SCH (07:00)
[2017-03-03 07:45] LABS: HEMATOCRIT 30.5 % (35.0-46.0); MEAN CELL VOLUME 82.1 FL (80.0-100.0); MEAN CORPUSCULAR HEMOGLOBIN 26.1 PG (27.0-34.0); MEAN CORPUSCULAR HGB CONC 31.9 % (32.0-36.0); PLATELET COUNT 219 TH/MM3 (150-450); RED BLOOD COUNT 3.72 MIL/MM3 (4.00-5.30); RED CELL DISTRIBUTION WIDTH 15.7 % (11.6-17.2); REVIEW FLAG FINAL; WHITE BLOOD COUNT 12.1 TH/MM3 (4.0-11.0)
[2017-03-03] MEDS ORDERED: DEXAMETHASONE SOD PHOS 20 MG/5 ML VIAL IV ONE (07:45)
[2017-03-03 08:00] VITALS: BP 111/62; PULSE 79; RESP 18; TEMP 97.3; O2SAT 96
[2017-03-03] MEDS ORDERED: PRAVASTATIN SOD 10 MG TAB PO SCH (09:00)
[2017-03-03] MEDS ORDERED: ATENOLOL 25 MG TAB PO SCH (09:00)
[2017-03-03] MEDS: SODIUM CHLORIDE 0.9% FLUSH 5 ML FLUSH IVF SCH (09:00)
[2017-03-03] MEDS ORDERED: PANTOPRAZOLE SOD 20 MG DELAYED RELEASE TAB PO SCH (09:00)
[2017-03-03] MEDS ORDERED: LOSARTAN 25 MG TAB PO SCH (09:00)
[2017-03-03] MEDS ORDERED: amLODIPine BESYLATE 5 MG TAB PO SCH (09:00)
[2017-03-03] MEDS: metFORMIN HCL 500 MG TAB PO SCH (09:14)
[2017-03-03 09:30] VITALS: O2SAT 96
[2017-03-03] MEDS ORDERED: ENOXAPARIN SODIUM 40 MG/0.4 ML SYRINGE SQ SCH (10:00)
[2017-03-03 11:36] VITALS: BP 122/87; PULSE 72; RESP 18; TEMP 97.2; O2SAT 94
--- NOTE | 2017-03-03 11:52 | PD.ORT.PN ---
Subjective Post Op Day #: 1 Subjective Remarks Patient OOB in chair with moderate pain to the left knee. Patient requesting to go home with home health today. Objective Vitals Vital Signs Date Time Temp Pulse Resp B/P (MAP) Pulse Ox O2 Delivery O2 Flow Rate FiO2 03/03/17 11:36 97.2 72 18 122/87 (99) 94 03/03/17 09:30 96 03/03/17 08:00 97.3 79 18 111/62 (78) 96 03/03/17 03:20 97.0 68 18 116/56 (76) 97 03/02/17 23:45 98.6 78 18 126/69 (88) 98 03/02/17 23:10 96.7 74 17 120/69 (86) 94 03/02/17 16:00 96.0 76 18 112/79 (90) 94 03/02/17 15:00 98.2 65 17 153/87 (109) 95 Nasal Cannula 2 03/02/17 14:00 60 15 141/81 (101) 95 Nasal Cannula 2 03/02/17 13:00 69 16 137/69 (91) 95 Nasal Cannula 2 03/02/17 12:30 69 14 136/66 (89) 93 Nasal Cannula 2 03/02/17 12:00 58 15 116/62 (80) 95 Nasal Cannula 3 03/02/17 11:45 60 13 135/66 (89) 95 Nasal Cannula 3 I/O 03/02/17 03/02/17 03/02/17 03/03/17 03/03/17 03/03/17 07:00 15:00 23:00 07:00 15:00 23:00 Intake Total 1940 ml 240 ml 100 ml 600 ml Output Total 850 ml Balance 1090 ml 240 ml 100 ml 600 ml Intake Oral 100 ml 240 ml 600 ml IV Total 490 ml 100 ml Other 1350 ml Output Urine Total 800 ml Estimated Blood Loss 50 ml # Voids 2 4 # Bowel Movements 0 0 Result Diagram: 03/03/17 0633 Procedures Left TKA Objective Remarks The patient's dressing was changed with scant serosanguineous drainage. Incision is well approximated with surgical clips intact. No redness or s/s of infection. EHL/TA/G intact. 2+ pedal pulse. Calf is soft and nontender. + SILT. Assessment & Plan Ortho Post Op Day #: 1 Problem List: Assessment and Plan POD #1: Left WAYNE 1. WBAT LLE 2. Lovenox for 3 weeks for DVT prophylaxis. Patient cannot tolerate ASA. 3. Ice to the left hip PRN 4. Stable for discharge home with home health today 5. F/U in the office with Dr. Funk or ADOLFO Geronimo as previously scheduled Cesario Swarzt Mar 03, 2017 11:52
[2017-03-03] MEDS ORDERED: ENOX40P SQ (11:54)
[2017-03-03 11:59] VITALS: RESP 18
[2017-03-03] MEDS ORDERED: DOCUSATE SODIUM 100 MG CAP PO SCH (21:00)
[2017-03-03] MEDS ORDERED: MULTIVITAMINS/MINERALS THERAPEUTIC TAB PO SCH (21:00)
--- NOTE | 2017-03-06 14:20 | HHI.DS ---
Discharge Summary Admission Date Mar 02, 2017 at 05:25 Discharge Date: Mar 03, 2017 Admitting Diagnosis Primary localized OA, lower leg Status post total knee replacement, left Diagnosis: (1) Primary localized osteoarthrosis, lower leg Diagnosis: Principal ICD Codes: M17.10 - Unilateral primary osteoarthritis, unspecified knee Status: Acute (2) Status post total knee replacement, left Diagnosis: Principal ICD Codes: Z96.652 - Presence of left artificial knee joint Procedures Left TKA Brief History This is a 66 year old female patient with severe OA of the left knee CBC/BMP: 03/03/17 0633 PE at Discharge The patient's dressing was changed with scant serosanguineous drainage. Incision is well approximated with surgical clips intact. No redness or s/s of infection. EHL/TA/G intact. 2+ pedal pulse. Calf is soft and nontender. + SILT. Hospital Course The patient was admitted to the hospital for severe OA of the left knee to have a left total knee arthroplasty. The patient's surgery went well without complication. The patient is WBAT. The patient is on a diabetic diet. The patient was placed on Lovenox for DVT prophylaxis. The patient was discharged home with home health and will f/u with Dr. Funk or ADOLFO Geronimo as previously scheduled. Pt Condition on Discharge: Stable Discharge Disposition: Disch w/ Home Health Serv Discharge Instructions Diet Instructions: Diabetic Diet Activities You Can Perform: Weight Bearing as [place] Activities to Avoid: Strenuous Activity Follow up Referrals: Orthopedics with Mookie Funk MD SNF/[facility]/ with [facility] New Medications: Commode 3-in-1 (Commode 3-in-1) 1 Mis Mis EA .ROUTE DIRECTED, #1 0 Refills CPM-Continuous Passive Motion Machine (CPM-Continuous Passive Motion Machine) 1 Ea Device EA .ROUTE DIRECTED, #1 0 Refills Enoxaparin Inj (Lovenox Inj) 40 Mg/0.4 Ml Syr 40 MG SQ DAILY for Blood Clot Prevention for 21 Days, SYRINGE 0 Refills Hydrocodone-Acetaminophen (Hydrocodone-Acetaminophen) 10-325 mg Tab 1-2 TAB PO Q4H PRN for PAIN, #60 TAB 0 Refills Walker with Front Wheels (Walker with Front Wheels) 1 Mis Mis EA .ROUTE DIRECTED, #1 0 Refills Continued Medications: Amlodipine (Amlodipine) 5 Mg Tab 5 MG PO DAILY for Blood Pressure Management, #30 TAB 0 Refills Atenolol (Atenolol) 25 Mg Tab 25 MG PO DAILY for Blood Pressure Management, #30 TAB B-Complex Vitamins (B Complex) 1 Cap 1 CAP PO DAILY for Nutritional Supplement, #30 CAP 0 Refills Cholecalciferol (Vitamin D-400) 400 Unit Tab 400 UNITS PO DAILY for Nutritional Supplement, #1 BOTTLE 0 Refills Losartan (Losartan) 25 Mg Tab 25 MG PO DAILY for Blood Pressure Management, #30 TAB 0 Refills Metformin (Metformin) 1,000 Mg Tab 1000 MG PO BIDPC for Blood Sugar Management, #60 TAB 0 Refills With meals Multiple Vitamins W/ Minerals (Centrum Silver Adult 50+) 1 Tab Tab 1 TAB PO DAILY Omeprazole (Omeprazole) 20 Mg Tab 20 MG PO DAILY, #30 TAB 0 Refills Ondansetron (Zofran) 4 Mg Tab 4 MG PO Q6HR PRN for NAUSEA OR VOMITING, #40 TAB 0 Refills Pravastatin (Pravastatin) 10 Mg Tab 10 MG PO DAILY for Cholesterol Management, #30 TAB 0 Refills Discontinued Medications: Hydrocodone-Acetaminophen ([place]) 5-325 mg Tab 1-2 TAB PO Q4H PRN for PAIN, #60 TAB 0 Refills Cesario Swartz Mar 06, 2017 14:20
== END 2017-03-03 12:35 | disposition home health service (06) | DRG 470 ==
LOC: HSDI 05:25 → N06B 15:34
PROVIDERS: ADMIT Orthopaedic Surgery; ATTEND Orthopaedic Surgery
PROC: 0SRD0J9 Replacement of Left Knee Joint with Synthetic Substitute, Cemented, Open Approach (ICD-10-PCS; principal; 2017-03-02 08:03)
DX: M17.12 Unilateral primary osteoarthritis, left knee (principal); I10 Essential (primary) hypertension; E78.5 Hyperlipidemia, unspecified; E11.9 Type 2 diabetes mellitus without complications; E66.9 Obesity, unspecified; Z68.37 Body mass index [BMI] 37.0-37.9, adult; Z87.891 Personal history of nicotine dependence
CPT/HCPCS: 73560; 85027; 86850; 86900; 86901; 86920; 86922; 94150; C1776; C9290; J0131; J0690; J0735; J1100; J1170; J1580; J1650; J1885; J2175; J2270; J2405; J2710; J2795; J3010; J3370; J7030; J7050; J7120; L1830